=== PATIENT | female | born 1950 | race Caucasian/White ===

== ENCOUNTER 2017-07-13 13:07 | Inpatient (IN) | payer MEDICARE, OTHER ==
[~2017-07-13] VITALS: Ht 165.1 cm; Wt 79.8 kg
--- NOTE | 2017-07-13 15:04 | NUR ---
DR KAYA COLEMAN OFFICE CALLED TO REQUEST H&P AND LIST OF MEDS - AWAITING MED LIST PER FAX. PER MD OFFICE H&P IS NOT AVAILABLE YET.
[2017-07-13 15:13] LABS: BASOPHILS # (AUTO) 0.1 K/uL (0.0-8.0); BASOPHILS % (AUTO) 0.7 % (0.0-2.0); EOSINOPHILS % (AUTO) 0.1 % (0.0-7.0); LYMPHOCYTES # (AUTO) 1.3 K/uL (20.0-40.0); LYMPHOCYTES % (AUTO) 8.9 % (20.5-51.5); MEAN CORPUSCULAR HEMOGLOBIN 27.6 uug (24.7-32.8); MEAN CORPUSCULAR HGB CONC 33 g/dL (32.3-35.6); MEAN CORPUSCULAR VOLUME 82.7 fL (75.5-95.3); MONOCYTES # (AUTO) 1.7 K/uL (2.0-10.0); NEUTROPHILS # (AUTO) 11.2 K/uL (1.8-8.9); NEUTROPHILS % (AUTO) 78.3 % (38.5-71.5); PLATELET COUNT (AUTO) 473 K/uL (179-408); RED BLOOD CELL COUNT(AUTO) 4.36 MIL/uL (3.63-4.92); WHITE BLOOD COUNT (AUTO) 14.3 K/uL (3.8-11.8)
[2017-07-13 15:21] LABS: CARBON DIOXIDE 25 mmol/L (21-32); CHLORIDE 93 mmol/L (98-107); CREATININE 1.1 mg/dL (0.6-1.3); GLUCOSE 95 mg/dL (74-106); POTASSIUM 3.6 mmol/L (3.5-5.1); UREA NITROGEN, BLOOD 15 mg/dL (7-18)
[2017-07-13 15:27] LABS: ALANINE AMINOTRANSFERASE 42 U/L (14-59); ALKALINE PHOSPHATASE 159 U/L (50-136); ASPARTATE AMINOTRANSFERASE 31 U/L (15-37); BILIRUBIN,DIRECT 0.2 mg/dL (0.0-0.2); BILIRUBIN,TOTAL 0.7 mg/dL (0.2-1.0); TOTAL PROTEIN, SERUM 8.1 g/dL (6.4-8.2)
[2017-07-13 15:29] LABS: ACETAMINOPHEN < 2.0 ug/mL (10-30)
[2017-07-13 15:30] LABS: ETHANOL < 3 MG/DL (0-0)
[2017-07-13 15:34] LABS: THYROID STIMULATING HORMONE 0.381 mIU/mL (0.358-3.740)
[2017-07-13] MEDS ORDERED: AMLO10TA4 PO (15:43)
[2017-07-13] MEDS ORDERED: DONE10TA11 PO (15:43)
[2017-07-13] MEDS ORDERED: FURO-152 PO (15:44)
[2017-07-13] MEDS ORDERED: RIVA1PAT TP (15:44)
[2017-07-13] MEDS ORDERED: TEMA15CA5 PO (15:44)
[2017-07-13] MEDS ORDERED: ZIPR80CA2 PO (15:44)
[2017-07-13] MEDS ORDERED: LORA-258 PO (15:44)
[2017-07-13] MEDS ORDERED: GABA-534 PO (15:44)
[2017-07-13] MEDS ORDERED: QUET200T PO (15:44)
[2017-07-13] MEDS ORDERED: BENA40TA2 PO (15:44)
--- NOTE | 2017-07-13 16:36 | NUR ---
ANGELICA NAIR TALKING TO FRANCESCO QUICK
--- NOTE | 2017-07-13 18:40 | NUR ---
PT TRANSFERED TO MHU IN STABLE CONDITION.
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
[2017-07-13] MEDS ORDERED: MAGNESIUM HYDROXIDE 30 ML LIQUID UDC PO PRN (19:30)
[2017-07-13] MEDS ORDERED: MAG HYDROX/AL HYDROX/SIMETH 30 ML LIQUID UDC PO PRN (19:30)
[2017-07-13 19:39] VITALS: BP 148/88
[2017-07-13] MEDS: ACETAMINOPHEN 325 MG TABLET PO PRN (21:46)
[2017-07-13] MEDS: TEMAZEPAM 7.5 MG CAPSULE PO PRN (21:46)
[2017-07-13] MEDS ORDERED: Z GUARD REMEDY PASTE 57 GM TUBE TOP PRN (22:15)
--- NOTE | 2017-07-14 06:22 | NUR ---
Patient slept 8 hours. No behavioral issues noted. Cooperative. Med compliant. Vital signs stable. Bed was kept in low and locked position. Safety and comfort measures maintained t/o shift.
[2017-07-14 07:30] VITALS: BP 105/63
[2017-07-14] MEDS: Z GUARD REMEDY PASTE 57 GM TUBE TOP SCH ×2 (09:01→20:01)
[2017-07-14] MEDS: NICOTINE 21 MG/24HR PATCH TD SCH (09:01)
[2017-07-14 10:04] LABS: BASOPHILS % (AUTO) 0.5 % (0.0-2.0); EOSINOPHILS # (AUTO) 0.1 K/uL (0.0-0.7); EOSINOPHILS % (AUTO) 1.6 % (0.0-7.0); HEMATOCRIT 34.2 % (31.2-41.9); HEMOGLOBIN 11.4 g/dL (10.9-14.3); LYMPHOCYTES # (AUTO) 1.7 K/uL (20.0-40.0); LYMPHOCYTES % (AUTO) 21.1 % (20.5-51.5); MEAN CORPUSCULAR HEMOGLOBIN 27.8 uug (24.7-32.8); MEAN CORPUSCULAR HGB CONC 33 g/dL (32.3-35.6); MEAN CORPUSCULAR VOLUME 83.5 fL (75.5-95.3); MONOCYTES # (AUTO) 1.1 K/uL (2.0-10.0); NEUTROPHILS % (AUTO) 62.8 % (38.5-71.5); PLATELET COUNT (AUTO) 445 K/uL (179-408)
[2017-07-14 10:20] LABS: MAGNESIUM 1.9 mg/dL (1.8-2.4); PHOSPHOROUS 4.2 mg/dL (2.5-4.9); POTASSIUM 3.9 mmol/L (3.5-5.1)
[2017-07-14 10:37] LABS: URIC ACID 5.4 mg/dL (2.6-6.0)
[2017-07-14 11:18] LABS: *BILIRUBIN,URIN NEGATIVE (NEGATIVE); *BLOOD, URINE NEGATIVE (NEGATIVE); *CLARITY,URINE CLEAR (CLEAR); *KETONES,URINE NEGATIVE (NEGATIVE); *PROTEIN,URINE NEGATIVE (NEGATIVE); *UROBILINOGEN,URINE 0.2 E.U./dl (NORMAL); LEUKOCYTE ESTERASE ,URINE NEGATIVE (NEGATIVE); NITRITE, URINE NEGATIVE (NEGATIVE); PH,URINE 5.5 (5.0-8.0); UGLUCOSE NEGATIVE (NEGATIVE)
[2017-07-14 11:23] LABS: THYROID STIMULATING HORMONE 0.463 mIU/mL (0.358-3.740)
[2017-07-14 11:28] LABS: *COLOR,URINE LIGHT YELLOW (YELLOW); BACTERIA,URINE NONE SEEN /HPF (NONE SEEN); RBC,URINE 0-3 /HPF (0-3); SQUAMOUS EPITHELIAL CELL,UR FEW /HPF (NONE SEEN); WBC,URINE NONE SEEN /HPF (0-3)
--- NOTE | 2017-07-14 11:41 | NUR ---
Firearms Report: Escrow Officer completed and submitted [employer] Firearms Report on 07/14/17.
[2017-07-14 11:54] LABS: *AMPHETAMINE, URINE NEGATIVE (NEGATIVE); *BARBITURATE, URINE NEGATIVE (NEGATIVE); *CANNABINOID, URINE NEGATIVE (NEGATIVE); *COCCAINE, URINE NEGATIVE (NEGATIVE); *OPIATE, URINE NEGATIVE (NEGATIVE); *PHENCYCLIDINE SCREEN,URINE NEGATIVE (NEGATIVE)
[2017-07-14] MEDS: ACETAMINOPHEN 325 MG TABLET PO PRN (11:55)
[2017-07-14 14:39] VITALS: BP 157/84
--- NOTE | 2017-07-14 14:51 | NUR ---
Initial Discharge Instructions: Patient currently resides at home alone [[address] [place] [address]; [phone]]. Per pt, she would like to return there when ready. Spoke with patient's brother, Jose ([phone]) who states that the patient has a long history of falling and medication non-compliance and does not feel it is safe for the patient to return home upon discharge. MAMADOU will continue to collaborate with pt, family, and MD regarding appropriate discharge disposition. SW will form a safe and proper discharge plan.
[2017-07-14] MEDS ORDERED: BENAZEPRIL HCL 20 MG TABLET PO ONE (16:15)
[2017-07-14] MEDS ORDERED: AMLODIPINE 10 MG TABLET PO ONE (16:15)
[2017-07-14] MEDS: GABAPENTIN 300 MG CAPSULE PO SCH (16:34)
[2017-07-14] MEDS: LORAZEPAM 0.5 MG TABLET PO SCH (17:02)
[2017-07-14] MEDS: ZIPRASIDONE 80 MG CAPSULE PO SCH (20:01)
[2017-07-14 21:40] VITALS: BP 130/75
--- NOTE | 2017-07-14 22:00 | NUR ---
received to care, up in blaze chair, appearing restless, and agitated, yellin gout intermittently, difficult to redirect. compliant with medications and staff direction. was assisted to the bathroom, and was very unsteady on her feet, so she was placed back in the blaze chair, for safety. as of 2199, she remains awake, and restless. currently eating a snack. will continue to monitor closely.
[2017-07-14] MEDS: TEMAZEPAM 7.5 MG CAPSULE PO PRN (22:32)
--- NOTE | 2017-07-14 22:32 | NUR ---
remains awake, and restless, attempting to get out of bed. placed in the blaze chair, at nurses station, for safety. PRN restoril was given at this time. will continue to monitor closely.
[2017-07-15] MEDS: LORAZEPAM 0.5 MG TABLET PO PRN ×2 (00:50→14:48)
[2017-07-15] MEDS: ACETAMINOPHEN 325 MG TABLET PO PRN ×3 (00:50→22:40)
--- NOTE | 2017-07-15 00:50 | NUR ---
assisted to be at 2330. as of 49, she remains awake, sitting up in bed. PRN ativan was given, she was assisted to the bathroom, and back to bed. will continue to monitor closely.
--- NOTE | 2017-07-15 06:35 | NUR ---
slept 1.5 hours, total. remains awake, and easily agitated. refused AM lab draw. currently sitting at her bedside.
[2017-07-15 07:30] VITALS: BP 106/74
[2017-07-15 07:39] LABS: CREATININE 0.9 mg/dL (0.6-1.3); POTASSIUM 4.2 mmol/L (3.5-5.1)
[2017-07-15] MEDS: BENAZEPRIL HCL 20 MG TABLET PO SCH (08:42)
[2017-07-15] MEDS: NICOTINE 21 MG/24HR PATCH TD SCH (08:43)
[2017-07-15] MEDS: AMLODIPINE 10 MG TABLET PO SCH (08:44)
[2017-07-15] MEDS: LORAZEPAM 0.5 MG TABLET PO SCH ×2 (08:44→18:54)
[2017-07-15] MEDS: GABAPENTIN 300 MG CAPSULE PO SCH ×3 (08:44→17:14)
[2017-07-15] MEDS: ZIPRASIDONE 80 MG CAPSULE PO SCH ×3 (08:45→22:40)
[2017-07-15] MEDS: Z GUARD REMEDY PASTE 57 GM TUBE TOP SCH ×2 (08:54→20:41)
[2017-07-15 17:05] VITALS: BP 124/62
[2017-07-15 20:08] VITALS: BP 103/79
--- NOTE | 2017-07-15 22:00 | NUR ---
received to care, up in blaze chair, calm, pleasant upon approach. assited to bed, after being assited with a shower. b/p was initially 103/79, so her geodon was held. as of 2199, she remains awake. remains calm. assityed to the bathroom several times since going top bed. gait remains unsteady. no distress noted. will continue to moniot rclosely.
[2017-07-15 22:40] VITALS: BP 132/78
[2017-07-16] MEDS: TEMAZEPAM 7.5 MG CAPSULE PO PRN ×2 (00:14→22:34)
--- NOTE | 2017-07-16 00:14 | NUR ---
remains awake, and restless. PRN restoril was given at this time.
--- NOTE | 2017-07-16 01:00 | NUR ---
appears to be asleep. no distress noted.
--- NOTE | 2017-07-16 06:00 | NUR ---
slept 5.0 hours, total. assisted up in blaze chair, after she tried to climb out of bed. currently at nurses station. no distress noted. will continue to monitor closely.
--- NOTE | 2017-07-16 07:00 | NUR ---
RECEIVED REPORT FROM FRAME NAILER, PATIENT UP IN GERICHAIR, CONTINENT AND AMBULATORY BUT WITH SHUFFLING GAIT, FALL RISK, NEEDS 1 PERSON ASSIST. NO ACUTE DISTRESS AT THIS TIME. ABLE TO VERBALIZE NEEDS. PER FRAME NAILER PATIENT WAS DIFFICULT TO REDIRECT LAST NIGHT. COMFORT MEASURES PROVIDED, WILL CONTINUE TO MONITOR CLOSELY.
[2017-07-16 07:30] VITALS: BP 166/91
[2017-07-16] MEDS: BENAZEPRIL HCL 20 MG TABLET PO SCH (08:07)
[2017-07-16] MEDS: NICOTINE 21 MG/24HR PATCH TD SCH (08:07)
[2017-07-16] MEDS: AMLODIPINE 10 MG TABLET PO SCH (08:08)
[2017-07-16] MEDS: LORAZEPAM 0.5 MG TABLET PO SCH ×2 (08:08→18:02)
[2017-07-16] MEDS: GABAPENTIN 300 MG CAPSULE PO SCH ×3 (08:08→16:04)
[2017-07-16] MEDS: ZIPRASIDONE 80 MG CAPSULE PO SCH ×2 (08:08→21:32)
[2017-07-16] MEDS: Z GUARD REMEDY PASTE 57 GM TUBE TOP SCH ×2 (08:09→20:19)
[2017-07-16] MEDS: LORAZEPAM 0.5 MG TABLET PO PRN (15:21)
[2017-07-16] MEDS: ACETAMINOPHEN 325 MG TABLET PO PRN ×2 (16:03→22:33)
[2017-07-16 16:22] VITALS: BP 110/68
--- NOTE | 2017-07-16 16:48 | NUR ---
Gps/Youth Coordinator- Frequentcy in urinations noted, bladder incontinence, good juan manuel-care encouraged, rendered, redness to coccygeal area, z-guard applied. Unsteady gait, shuffles when ambulating, potential for fall, safety reviewed and emphasized. Ambulated with front wheel walker, 2 staff assisting verbal cueing given , difficulty sequencing her tasks, wanting to sit down during ambulation.Gets needy, demanding behavior.
[2017-07-16 20:00] VITALS: BP 99/62
[2017-07-16 21:30] VITALS: BP 123/77
--- NOTE | 2017-07-16 22:00 | NUR ---
received to care, up in blaze chair, watching tv, with peers. pleasant, but slightly anxious, upon approach. compliant with medications, and staff direction. as of 2199, she remains awake, watching tv. currently eating a snack. no distress noted, will continue to monitor closely.
--- NOTE | 2017-07-16 22:34 | NUR ---
remains awake, and restless. yelling out intermittently, even though all her needs were met. PRN restoril was given at this time. continues to watch tv. will continue to monitor closely.
[2017-07-17] MEDS: LORAZEPAM 0.5 MG TABLET PO PRN ×2 (00:05→20:30)
--- NOTE | 2017-07-17 00:05 | NUR ---
remains awake, and restless. attempting to climb out of bed, for no reason. PRN ativan was given. will continue to monitor closely.
--- NOTE | 2017-07-17 06:19 | NUR ---
PT DID NOT SLEEP DURING THE NIGHT, FELL ASLEEP IN THE MORNING. MOST OF THE NIGHT PT WAS RESTLESS AND TRYING TO GET OUT OF BED, YELLING AND ATTENTION SEEKING, PT DID RELAX FOR A SHORT TIME IN THE UTILITY WORKER FORGE. ALL NEEDS MET, SAFETY MEASURES ARE IN PLACE, BED ALARM IS ON.
[2017-07-17 07:30] VITALS: BP 167/87
[2017-07-17] MEDS: GABAPENTIN 300 MG CAPSULE PO SCH ×3 (08:38→16:28)
[2017-07-17] MEDS: AMLODIPINE 10 MG TABLET PO SCH (08:39)
[2017-07-17] MEDS: NICOTINE 21 MG/24HR PATCH TD SCH ×2 (08:39→08:53)
[2017-07-17] MEDS: BENAZEPRIL HCL 20 MG TABLET PO SCH (08:39)
[2017-07-17] MEDS: Z GUARD REMEDY PASTE 57 GM TUBE TOP SCH ×2 (08:40→20:19)
[2017-07-17] MEDS: LORAZEPAM 0.5 MG TABLET PO SCH ×2 (08:41→16:28)
[2017-07-17] MEDS: ZIPRASIDONE 80 MG CAPSULE PO SCH ×2 (08:47→20:16)
--- NOTE | 2017-07-17 12:52 | NUR ---
Gps/Director Peoplesoft- remains in bed most of the morning ,asleep bed alarm on. Safety reviewed,emphasized. Decreased voiding frequency.
--- NOTE | 2017-07-17 14:00 | NUR ---
Gps/Chemical Equipment Repairer-Bladder incontienence noted, good juan manuel-care encouraged and rendered, z-guard applied to her buttocks area,diapered. OOB to her chair, attending her group therapy.Was toileted after her meals.
[2017-07-17 15:50] VITALS: BP 114/63
--- NOTE | 2017-07-17 17:49 | NUR ---
Gps/Sausage Smoker- Stayed up on her blaze-chair during her dinner, fed self ind. after set up, toileted at a reg.intervals, Fluids limited, r/t pt. frequency in urinations .
--- NOTE | 2017-07-17 20:00 | NUR ---
PT IN ROOM LYING IN BED IN NO ACUTE DISTRESS. PERIODS OF ANXIETY NOTED AND REMOVING DIAPER. NEEDS REMINDERS REGARDING SAFETY AND TO REQUEST FOR ASSISTANCE WHEN NEEDED. PT MADE AWARE OF PLAN OF CARE REGARDING ROUTINE HS MEDICATION REGIMEN. BED ALARM AND AND WILL CONTINUE TO MONITOR. DENIES ANY PAIN OR DISCOMFORT AT THIS TIME.
[2017-07-17 20:26] VITALS: BP 122/78
[2017-07-17] MEDS: TEMAZEPAM 7.5 MG CAPSULE PO PRN (21:59)
[2017-07-17] MEDS: ACETAMINOPHEN 325 MG TABLET PO PRN (21:59)
--- NOTE | 2017-07-18 05:59 | NUR ---
PT ABLE TO SLEEP UP TO 4 HRS IN ROOM. PT HAD PERIODS OF ATTENTION SEEKING LAST NIGHT AND WAS GIVEN ATIVAN WITH LITTLE TO NO EFFECT. RESTORIL MEDICATION OFFERED AND WAS EFFECTIVE. PT NEEDS CONTINUOUS OBSERVATION FOR SAFETY AND REDIRECTION. WILL CONTINUE TO MONITOR.
[2017-07-18 07:30] VITALS: BP 140/98
[2017-07-18] MEDS: ZIPRASIDONE 80 MG CAPSULE PO SCH ×2 (08:36→20:58)
[2017-07-18] MEDS: AMLODIPINE 10 MG TABLET PO SCH (08:37)
[2017-07-18] MEDS: LORAZEPAM 0.5 MG TABLET PO SCH ×2 (08:37→16:26)
[2017-07-18] MEDS: BENAZEPRIL HCL 20 MG TABLET PO SCH (08:37)
[2017-07-18] MEDS: GABAPENTIN 300 MG CAPSULE PO SCH ×3 (08:37→16:26)
[2017-07-18] MEDS: NICOTINE 21 MG/24HR PATCH TD SCH (08:38)
[2017-07-18] MEDS: Z GUARD REMEDY PASTE 57 GM TUBE TOP SCH ×2 (08:38→20:58)
--- NOTE | 2017-07-18 08:58 | NUR ---
Gps/Director Instrumentation-Manipuilative, needy ,demanding behavior, distructive to the group pt. kept picking on her diaper , taken out of the the group. Patient banging table , wants to get out of blaez-chair and walk around per pt. Tried to ambulate patient with 2 staff assisting , unsafe unsteady gait, shuffles, potential for fall. Patient difficulty following directions . Hesitant to take he routine am meds.this am. ,needed prompting.
[2017-07-18] MEDS: LORAZEPAM 0.5 MG TABLET PO PRN ×2 (10:59→19:46)
--- NOTE | 2017-07-18 15:00 | NUR ---
Gps/Dialysis Nurse- Taken to the bathroom in her room , bladder incontinence noted, diapered when assisted back to her bed to rest, bed alarm on, safety continue to review and emphasized.
[2017-07-18 15:50] VITALS: BP 136/76
--- NOTE | 2017-07-18 16:51 | NUR ---
Gps/Director Of Strategic Initiatives- Stayed up on her blaze-chair during her breakfast and lunch, was assisted back to bed this pm. to rest, complaining of her coccygeal soreness, slightly reddened, z-guard applied.Had bladder incontinence. Safety reviewed continue to emphasized. Gets demanding and needy ,constantly asking for something, setting limits emphasized.
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
[2017-07-18 20:00] VITALS: BP 114/66
--- NOTE | 2017-07-18 21:00 | NUR ---
DUE TIME FOR JENNY RENE;EDUCATED TO PT;PT TOLERATED WELL BUT KEPT ASKING FOR SLEEPING PILL;EDUCATED TO PT THAT WILL GIVE IT LATER;PT'S CALM ON/OFF;STILL YELLING TO GET MORE ICE CHIPS AND SOME PUDDING;THE NEED'S MET.BED ALARM'S ON.SAFETY REINFORCED.CLOSELY MONITORING TO PT.
[2017-07-19] MEDS: TEMAZEPAM 7.5 MG CAPSULE PO PRN ×2 (02:01→20:01)
[2017-07-19] MEDS: LORAZEPAM 0.5 MG TABLET PO PRN ×2 (04:02→13:00)
--- NOTE | 2017-07-19 06:30 | NUR ---
PT SLEPT FOR 4 HOURS AT NIGHT,SLEPT ON/OFF DURING OF THE NIGHT.PT'S YELLING ON/OFF THE MOST FOR ICE CHIPS.NO DISTRESS NOTED IN THE SHIFT,PT REMAINED FREE FROM INJURY.BED ALARM'S ON FOR SAFETY.
[2017-07-19 07:30] VITALS: BP 136/94
[2017-07-19] MEDS: LORAZEPAM 0.5 MG TABLET PO SCH ×2 (08:01→16:09)
[2017-07-19] MEDS: NICOTINE 21 MG/24HR PATCH TD SCH (08:01)
[2017-07-19] MEDS: LIDOCAINE 5% PATCH TD SCH (08:01)
[2017-07-19] MEDS: GABAPENTIN 300 MG CAPSULE PO SCH ×4 (08:02→19:58)
[2017-07-19] MEDS: BENAZEPRIL HCL 20 MG TABLET PO SCH (08:02)
[2017-07-19] MEDS: AMLODIPINE 10 MG TABLET PO SCH (08:02)
[2017-07-19] MEDS: ZIPRASIDONE 80 MG CAPSULE PO SCH ×2 (08:02→20:00)
[2017-07-19] MEDS: Z GUARD REMEDY PASTE 57 GM TUBE TOP SCH ×2 (08:25→20:34)
[2017-07-19] MEDS: ACETAMINOPHEN 325 MG TABLET PO PRN ×3 (10:27→20:01)
--- NOTE | 2017-07-19 10:31 | NUR ---
Manipuilative, needy ,demanding behavior, distructive to the group pt. , Patient banging table , wants to get out of blaze-chair and walk around per pt. Tried to ambulate patient with 2 staff assisting , unsafe unsteady gait, shuffles, potential for fall. Patient difficulty following directions .
[2017-07-19 15:29] VITALS: BP 112/71
--- NOTE | 2017-07-19 17:37 | NUR ---
PT IS COMBATIVE USING BAD WORDS .CALLING THE STAFF WITH THE NAMES ENRIKE YOU ,YOU MD SANTIAGO AND CHARGE NURSE MADE AWARE
[2017-07-19 20:00] VITALS: BP 105/56
--- NOTE | 2017-07-19 22:11 | NUR ---
Lying in bed mood agitated affect flat Demanding ice h20 Denies A/H V/H Si or Hi. Given H20 and encourage to verbalize her feelings q 30 min checks for safety and fall precations bed alarm on. Med compliant with 2100 meds, cooperative with staff.
[2017-07-20] MEDS: LORAZEPAM 0.5 MG TABLET PO PRN ×2 (04:10→14:09)
--- NOTE | 2017-07-20 06:30 | NUR ---
PT SLEPT FOR 7.0 AT POST CLOSING SPECIALIST,DENIED OF PAIN OR ANY DISCOMFORT THIS MORNING. C/o anxiety at 3am given ativan 0.5 mg po. effective IN THE SHIFT.PT REMAINED FREE FROM INJURY AND COMPLAINT WITH MEDICATION AND ASSISTANCE NOTED.
[2017-07-20 07:30] VITALS: BP 111/69
[2017-07-20] MEDS: ZIPRASIDONE 80 MG CAPSULE PO SCH ×2 (08:05→20:23)
[2017-07-20] MEDS: LORAZEPAM 0.5 MG TABLET PO SCH ×2 (08:05→16:13)
[2017-07-20] MEDS: AMLODIPINE 10 MG TABLET PO SCH (08:06)
[2017-07-20] MEDS: BENAZEPRIL HCL 20 MG TABLET PO SCH (08:06)
[2017-07-20] MEDS: Z GUARD REMEDY PASTE 57 GM TUBE TOP SCH ×2 (08:07→20:29)
[2017-07-20] MEDS: GABAPENTIN 300 MG CAPSULE PO SCH ×3 (08:07→20:24)
[2017-07-20] MEDS: NICOTINE 21 MG/24HR PATCH TD SCH (08:07)
[2017-07-20] MEDS: LIDOCAINE 5% PATCH TD SCH (08:07)
[2017-07-20] MEDS ORDERED: LORAZEPAM 2 MG/1 ML VIAL IM ONE (08:45)
[2017-07-20] MEDS ORDERED: OLANZAPINE 10 MG VIAL IM ONE (08:45)
[2017-07-20] MEDS ORDERED: GABAPENTIN 300 MG CAPSULE PO SCH (13:00)
[2017-07-20 15:59] VITALS: BP 99/62
--- NOTE | 2017-07-20 19:45 | NUR ---
RECEIVED PATIENT IN BED, AWAKE VERBALLY RESPONSIVE, NO COMPLAIN OF PAIN AT THIS TIME, CONT ON 1;1 FOR SAFETY, KEPT CLEAN AND DRY. CONT TO MONITOR.
[2017-07-20 20:12] VITALS: BP 122/64
[2017-07-21] MEDS: ACETAMINOPHEN 325 MG TABLET PO PRN ×2 (00:27→16:08)
[2017-07-21] MEDS: LORAZEPAM 0.5 MG TABLET PO PRN ×2 (00:50→11:58)
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
[2017-07-21 07:30] VITALS: BP 138/84
[2017-07-21] MEDS: GABAPENTIN 300 MG CAPSULE PO SCH ×4 (09:14→20:39)
[2017-07-21] MEDS: AMLODIPINE 10 MG TABLET PO SCH (09:14)
[2017-07-21] MEDS: ZIPRASIDONE 80 MG CAPSULE PO SCH ×2 (09:14→20:39)
[2017-07-21] MEDS: LIDOCAINE 5% PATCH TD SCH (09:14)
[2017-07-21] MEDS: BENAZEPRIL HCL 20 MG TABLET PO SCH (09:14)
[2017-07-21] MEDS: LORAZEPAM 0.5 MG TABLET PO SCH ×2 (09:14→16:08)
[2017-07-21] MEDS: Z GUARD REMEDY PASTE 57 GM TUBE TOP SCH ×2 (09:17→20:40)
[2017-07-21] MEDS: NICOTINE 21 MG/24HR PATCH TD SCH (10:06)
[2017-07-21] MEDS ORDERED: HYDROCORTISONE 0.5% TOP PRN (15:00)
[2017-07-21 15:25] VITALS: BP 128/75
--- NOTE | 2017-07-21 19:23 | NUR ---
no changes noted. all safety needs are met.
[2017-07-21 20:19] VITALS: BP 115/61
--- NOTE | 2017-07-21 22:00 | NUR ---
received to care, lying in bed, pleasant, but needy and attention seeking upon approach. 1;1 sitter remains at side, for safety. compliant with medications and staff direction. a sof 230, she appears to be asleep. no distress noted. will continue to monitor closely.
--- NOTE | 2017-07-21 22:30 | NUR ---
receive dto care, lying in bed, pleasant, but needy and attention seeking upon approach. 1;1 sitter remains at side, for safety. complian terrell martinez
[2017-07-22] MEDS: ACETAMINOPHEN 325 MG TABLET PO PRN ×3 (05:30→18:42)
[2017-07-22] MEDS: LORAZEPAM 0.5 MG TABLET PO PRN ×2 (05:30→13:20)
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
--- NOTE | 2017-07-22 05:50 | NUR ---
PT REFUSED TO STAY IN THE TUCKER CHAIR. STATES SHE IS ANGRY BECAUSE SHE WANTS TO GO HOME. CURRENTLY SITTING IN A HIGH BACK CHAIR, WITH SITTER AT SIDE. WILL CONTINUE TO MONITOR CLOSELY.
--- NOTE | 2017-07-22 06:42 | NUR ---
appears calmer, now. remains in activity room. no distress noted. slept 6 hours last night.
[2017-07-22 08:00] VITALS: BP 119/71
[2017-07-22] MEDS: GABAPENTIN 300 MG CAPSULE PO SCH ×4 (08:49→20:38)
[2017-07-22] MEDS: AMLODIPINE 10 MG TABLET PO SCH (08:50)
[2017-07-22] MEDS: LORAZEPAM 0.5 MG TABLET PO SCH ×2 (08:50→16:25)
[2017-07-22] MEDS: ZIPRASIDONE 80 MG CAPSULE PO SCH ×2 (08:50→20:38)
[2017-07-22] MEDS: BENAZEPRIL HCL 20 MG TABLET PO SCH (08:50)
[2017-07-22] MEDS: LIDOCAINE 5% PATCH TD SCH (08:51)
[2017-07-22] MEDS: Z GUARD REMEDY PASTE 57 GM TUBE TOP SCH ×2 (08:56→20:39)
[2017-07-22] MEDS: NICOTINE 21 MG/24HR PATCH TD SCH (08:56)
--- NOTE | 2017-07-22 15:25 | NUR ---
Gps/Level Glass Forming Machine Operator- Remains with 1:1 Nursing supervision for safety. Ambulated with P.T. using FWW., needed verbal cueing in taking a big steps , shuffles at times. Discharge planning for tomorrow pt. was well informed.
[2017-07-22 16:00] VITALS: BP 126/68
--- NOTE | 2017-07-22 16:15 | NUR ---
Gps/Manager Technical- Patches of red bumps rashes to her bilateral forearm, and lower ext. shins, hydrocortisone cream applied as ordered, pt. verbalized relief from itching.
[2017-07-22] MEDS: HYDROCORTISONE 1% OINT 28.35 GM TUBE TOP PRN (16:28)
[2017-07-22 20:00] VITALS: BP 139/72
[2017-07-22] MEDS: TEMAZEPAM 7.5 MG CAPSULE PO PRN (21:52)
--- NOTE | 2017-07-22 22:30 | NUR ---
received to care, lying in bed, pleasant, but needy and attention seeking. 1;1 sitter remains at side, for safety; all needs attended to. compliant with medications and staff direction. PRN restoril was given at 2151, for insomnia. as of 2229, she appears to be asleep. no distress noted. will continue to monitor closely.
[2017-07-23] MEDS: LORAZEPAM 0.5 MG TABLET PO PRN ×2 (03:51→10:52)
[2017-07-23] MEDS: ACETAMINOPHEN 325 MG TABLET PO PRN (03:52)
--- NOTE | 2017-07-23 03:52 | NUR ---
is awake, and restless. PRN ativan given for anxiety.
[2017-07-23 07:30] VITALS: BP 132/76
--- NOTE | 2017-07-23 08:17 | NUR ---
DC Note: Patient will be discharged to [facility] [[address] [place] [address]; [phone]] via ambulance. Spoke with Shakeel at the facility who states they are ready to accept the patient today. Spoke with patient's brother, Jose ([phone]) and [id number], Nathanael ([phone]) who are both aware and agreeable with discharge plans. Patient is aware and agreeable with discharge plan. Patient will follow-up at the facility with Dr. Schulte (Field Administrator) and Dr. Mcmullen (Psychiatrist).
[2017-07-23] MEDS: BENAZEPRIL HCL 20 MG TABLET PO SCH (08:31)
[2017-07-23] MEDS: AMLODIPINE 10 MG TABLET PO SCH (08:31)
[2017-07-23] MEDS: ZIPRASIDONE 80 MG CAPSULE PO SCH (08:31)
[2017-07-23] MEDS: NICOTINE 21 MG/24HR PATCH TD SCH (08:32)
[2017-07-23] MEDS: GABAPENTIN 300 MG CAPSULE PO SCH ×2 (08:32→12:31)
[2017-07-23] MEDS: LORAZEPAM 0.5 MG TABLET PO SCH (08:32)
[2017-07-23] MEDS: Z GUARD REMEDY PASTE 57 GM TUBE TOP SCH (08:33)
[2017-07-23] MEDS: LIDOCAINE 5% PATCH TD SCH (08:56)
--- NOTE | 2017-07-23 09:13 | NUR ---
Gps/Geology Teacher- Discharge planning in progress to [facility], patient was well informed.
[2017-07-23] MEDS: HYDROCORTISONE 1% OINT 28.35 GM TUBE TOP PRN (09:18)
--- NOTE | 2017-07-23 14:00 | NUR ---
Gps/Log Check Scaler- Called [facility], spoke to Tonie Herring ,report was given. All belongings given back to patient , anxious about dc. plan ,but looking forward to it per patient. Denies pain appeared to be in good spirit, no complaints noted.
[2017-07-23 14:31] VITALS: BP 121/74
--- NOTE | 2017-07-23 15:35 | NUR ---
Gps/Afterschool Babysitter- Patient's shoes and black purse , clothes apparently picked up by mistake by ambulance for patient that want discharged to [facility], facility was called and will be bringing patient's belongings to [facility].
== END 2017-07-23 15:55 | DRG 885 ==
LOC: ER 13:07 → GPS 18:28
PROVIDERS: ADMIT Psychiatry & Neurology Psychiatry; ATTEND Nurse Practitioner Acute Care
DX: F25.0 Schizoaffective disorder, bipolar type (principal); G93.40 Encephalopathy, unspecified; E87.1 Hypo-osmolality and hyponatremia; Z79.899 Other long term (current) drug therapy; M47.812 Spondylosis without myelopathy or radiculopathy, cervical region; E04.2 Nontoxic multinodular goiter; Z91.89 Other specified personal risk factors, not elsewhere classified; G89.29 Other chronic pain; M54.5 Low back pain; I67.2 Cerebral atherosclerosis; D72.829 Elevated white blood cell count, unspecified; D47.3 Essential (hemorrhagic) thrombocythemia; I10 Essential (primary) hypertension; M77.9 Enthesopathy, unspecified
CPT/HCPCS: 36415; 70030-TC; 70450; 71045; 72125; 80307; 82533; 83605; 83735; 84100; 84300; 84443; 84550; 85025; 85730; 86592; 87040; 87086; 93005; 97110; 97116; 97530; A4663; G0480; G0480-TC; J2060; J2358; J7060

== ENCOUNTER 2017-08-05 21:38 | Inpatient (IN) | payer MEDICARE, OTHER ==
[~2017-08-05] VITALS: Ht 157.5 cm; Wt 80.7 kg
[~2017-08-05 21:38] MED LIST: AMLO10TA4 PO; BENA40TA2 PO; FURO-152 PO; GABA-534 PO
--- NOTE | 2017-08-05 21:42 | NUR ---
All information obtained from records sent from [facility]
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
[2017-08-05] MEDS ORDERED: TEMA7.5C PO (22:04)
[2017-08-05] MEDS ORDERED: ZIPR80CA2 PO (22:04)
[2017-08-05] MEDS ORDERED: NA P133E RC (22:04)
[2017-08-05] MEDS ORDERED: GABA600T PO (22:04)
[2017-08-05] MEDS ORDERED: ACET325T53 PO (22:04)
[2017-08-05] MEDS ORDERED: LIDO30AD10 TD (22:04)
[2017-08-05] MEDS ORDERED: MAG355OR18 PO (22:04)
[2017-08-05] MEDS ORDERED: LORA0.5T PO (22:04)
[2017-08-05] MEDS ORDERED: LORA0.5T48 PO (22:04)
[2017-08-05] MEDS ORDERED: AMLO10TA4 PO (22:04)
[2017-08-05] MEDS ORDERED: BENA40TA67 PO (22:04)
[2017-08-05] MEDS ORDERED: MAGN400O6 PO (22:04)
[2017-08-05 22:12] LABS: *BILIRUBIN,URIN NEGATIVE (NEGATIVE); *BLOOD, URINE NEGATIVE (NEGATIVE); *CLARITY,URINE CLEAR (CLEAR); *COLOR,URINE LIGHT YELLOW (YELLOW); *KETONES,URINE NEGATIVE (NEGATIVE); *PROTEIN,URINE NEGATIVE (NEGATIVE); *UROBILINOGEN,URINE 0.2 E.U./dl (NORMAL); LEUKOCYTE ESTERASE ,URINE NEGATIVE (NEGATIVE); NITRITE, URINE NEGATIVE (NEGATIVE); PH,URINE 6.5 (5.0-8.0); UGLUCOSE NEGATIVE (NEGATIVE)
[2017-08-05 22:13] LABS: BASOPHILS # (AUTO) 0.1 K/uL (0.0-8.0); BASOPHILS % (AUTO) 0.6 % (0.0-2.0); EOSINOPHILS # (AUTO) 0.1 K/uL (0.0-0.7); EOSINOPHILS % (AUTO) 1.8 % (0.0-7.0); HEMATOCRIT 31.1 % (31.2-41.9); HEMOGLOBIN 10.6 g/dL (10.9-14.3); LYMPHOCYTES # (AUTO) 2.3 K/uL (20.0-40.0); LYMPHOCYTES % (AUTO) 27.7 % (20.5-51.5); MEAN CORPUSCULAR HEMOGLOBIN 27.9 uug (24.7-32.8); MEAN CORPUSCULAR HGB CONC 34 g/dL (32.3-35.6); MEAN CORPUSCULAR VOLUME 82.3 fL (75.5-95.3); MONOCYTES % (AUTO) 12.2 % (0.0-11.0); NEUTROPHILS # (AUTO) 4.7 K/uL (1.8-8.9); NEUTROPHILS % (AUTO) 57.7 % (38.5-71.5); PLATELET COUNT (AUTO) 413 K/uL (179-408); RED BLOOD CELL COUNT(AUTO) 3.78 MIL/uL (3.63-4.92); WHITE BLOOD COUNT (AUTO) 8.1 K/uL (3.8-11.8)
[2017-08-05 22:18] LABS: CARBON DIOXIDE 26 mmol/L (21-32); CHLORIDE 99 mmol/L (98-107); GLUCOSE 98 mg/dL (74-106); POTASSIUM 3.7 mmol/L (3.5-5.1); UREA NITROGEN, BLOOD 14 mg/dL (7-18)
[2017-08-05 22:20] LABS: SQUAMOUS EPITHELIAL CELL,UR FEW /HPF (NONE SEEN); WBC,URINE NONE SEEN /HPF (0-3)
[2017-08-05 22:24] LABS: ACETAMINOPHEN < 2.0 ug/mL (10-30); ALANINE AMINOTRANSFERASE 26 U/L (14-59); ALKALINE PHOSPHATASE 122 U/L (50-136); ASPARTATE AMINOTRANSFERASE 16 U/L (15-37); BILIRUBIN,DIRECT 0.1 mg/dL (0.0-0.2); BILIRUBIN,TOTAL 0.3 mg/dL (0.2-1.0)
[2017-08-05 22:26] LABS: ETHANOL < 3 MG/DL (0-0)
[2017-08-05 22:27] LABS: *AMPHETAMINE, URINE NEGATIVE (NEGATIVE); *BARBITURATE, URINE NEGATIVE (NEGATIVE); *CANNABINOID, URINE NEGATIVE (NEGATIVE); *COCCAINE, URINE NEGATIVE (NEGATIVE); *OPIATE, URINE NEGATIVE (NEGATIVE); *PHENCYCLIDINE SCREEN,URINE NEGATIVE (NEGATIVE)
--- NOTE | 2017-08-05 22:35 | NUR ---
Pt. admitted to GPS, under care of Dr. Mcmullen Belongs List completed
--- NOTE | 2017-08-05 22:50 | NUR ---
Admitting 67 y/o F to GPS. Arrived to unit via wheelchair accompanied by OPTOMETRIC TECH. Noted to be anxious. Verbally responsive and able to make needs known. AAO x 2, oriented to self and place. No acute distress noted. Compliant and non-compliant with medical interventions despite explanation of importance. Agreed to body check if done by female staff, but then refused body check when brought into bedroom. Refusing pictures and refusing to sign some admission documents despite explanation of importance. Denies SI/AH/VH. MD made aware of patient arrival. Orders verified. Denies pain or discomfort at this time. All safety measures and fall precautions maintained. Bed locked and in lowest position with side rails up x 2. Oriented to unit, pt verbalize understanding. Will continue to monitor.
[2017-08-05] MEDS ORDERED: MAG HYDROX/AL HYDROX/SIMETH 30 ML LIQUID UDC PO PRN (23:15)
[2017-08-05] MEDS ORDERED: MAGNESIUM HYDROXIDE 30 ML LIQUID UDC PO PRN (23:15)
[2017-08-05 23:36] VITALS: BP 127/75
--- NOTE | 2017-08-06 07:20 | NUR ---
Shift report given by nightshift RN. Pt new admission during noc shift. Rec'd pt up in w/c, awake, near nurse's station. No s/s of acute distress noted. On RA, no SOB noted. Denies pain. Denies chest pain. Unable to tell why she is here in the unit. Pt verbalizing she wants to go home. Reoriented and redirected as needed. All needs met at this time. Will continue to monitor for change.
[2017-08-06 07:30] VITALS: BP 153/88
[2017-08-06] MEDS ORDERED: ACETAMINOPHEN 325 MG TABLET PO PRN (09:00)
[2017-08-06] MEDS ORDERED: FLEET ENEMA 133 ML BOTTLE RC PRN (09:00)
[2017-08-06] MEDS ORDERED: MAG HYDROX/AL HYDROX/SIMETH 30 ML LIQUID UDC PO PRN (09:00)
[2017-08-06] MEDS: LIDOCAINE 5% PATCH TD SCH ×2 (09:00→09:49)
[2017-08-06] MEDS ORDERED: MAGNESIUM HYDROXIDE 30 ML LIQUID UDC PO PRN (09:00)
[2017-08-06] MEDS: GABAPENTIN 300 MG CAPSULE PO SCH ×3 (09:48→17:49)
[2017-08-06] MEDS: FUROSEMIDE 20 MG TABLET PO SCH (09:48)
[2017-08-06] MEDS: AMLODIPINE 10 MG TABLET PO SCH (09:49)
[2017-08-06] MEDS: NICOTINE 21 MG/24HR PATCH TD SCH (09:49)
[2017-08-06] MEDS: BENAZEPRIL HCL 20 MG TABLET PO SCH (09:49)
[2017-08-06] MEDS: LORAZEPAM 0.5 MG TABLET PO PRN (09:55)
[2017-08-06] MEDS: ACETAMINOPHEN 325 MG TABLET PO PRN ×2 (09:55→13:16)
--- NOTE | 2017-08-06 10:25 | NUR ---
Social Service Assessment: I have reviewed this patient's psychosocial dated 07/14/17 and I can attest to the accuracy of the information therein. There have been no changes since her last assessment, except that patient now resides at [facility] [[address] [place] [address]; [phone]]. Patient is alert and oriented x2. Patient is irritable with a flat affect. Pt appears confused and states "I want to go home." Pt denies having current suicidal/homicidal ideations. Pt denies auditory and visual hallucinations. Pt's insight and judgment are impaired.
[2017-08-06 15:00] VITALS: BP 144/83
[2017-08-06] MEDS: LORAZEPAM 0.5 MG TABLET PO SCH (17:49)
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
[2017-08-06] MEDS: DIVALPROEX 250 MG TABLET.DR PO SCH (20:09)
[2017-08-06] MEDS ORDERED: QUETIAPINE FUMARATE 100 MG TABLET PO SCH (21:00)
[2017-08-07 07:30] VITALS: BP 155/82
--- NOTE | 2017-08-07 08:00 | NUR ---
RESTORED Pt RIGHTS TO USE TELEPHONE THIS MORNING. WILL HAVE Pt USE HALLWAY TELEPHONE IF REQUESTED.
[2017-08-07] MEDS: NICOTINE 21 MG/24HR PATCH TD SCH (08:40)
[2017-08-07] MEDS: LIDOCAINE 5% PATCH TD SCH (08:40)
[2017-08-07] MEDS: GABAPENTIN 300 MG CAPSULE PO SCH ×3 (08:41→18:29)
[2017-08-07] MEDS: DIVALPROEX 250 MG TABLET.DR PO SCH ×3 (08:41→20:24)
[2017-08-07] MEDS: FUROSEMIDE 20 MG TABLET PO SCH (08:41)
[2017-08-07] MEDS: QUETIAPINE FUMARATE 100 MG TABLET PO SCH ×2 (08:41→18:30)
[2017-08-07] MEDS: LORAZEPAM 0.5 MG TABLET PO SCH ×3 (08:41→18:30)
[2017-08-07] MEDS: BENAZEPRIL HCL 20 MG TABLET PO SCH (08:42)
[2017-08-07] MEDS: AMLODIPINE 10 MG TABLET PO SCH (08:42)
--- NOTE | 2017-08-07 15:00 | NUR ---
GPS: Nursing Notes: GPS Overflow Transfer: Patient is awake and responding to her name, A/Ox3, poor impulse control, needs prompting with ADL's, compliant with her medications, gets easily irritable when redirected, transfer to room # 223 due to contact isolation, MRSA-Nares, picked up by Anny meehan CNA to take patient to room # 223, report given to Mercedes MACHADO to continue with care and treatment plan.
[2017-08-07 16:00] VITALS: BP 109/54
--- NOTE | 2017-08-07 16:30 | NUR ---
RECIEVED PT IN RM 223 VIA W/C MHU OVERFLOW BECAUSE OF MRSA ISOLATION. 14DAY HOLD WITH 1:1 SITTER AT THE BEDSIDE. PT IS AWAKE, ALERT AND ORIENTEDX3. VERY PLEASANT AND COOPERATIVE. NO APPARENT DISTRESS NOTED.
[2017-08-07] MEDS: ACETAMINOPHEN 325 MG TABLET PO PRN (18:30)
--- NOTE | 2017-08-07 18:30 | NUR ---
MEDICATED PT WITH TYLENOL 650MG ORALLY FOR C/O MADDEN. PT ATE GOOD DINNER AND ABLE TO AMBULATE TO THE BATHROOM AND VOID WELL.
--- NOTE | 2017-08-07 19:00 | NUR ---
RECEIVED PATIENT IN BED, AWAKE VERBALLY RESPONSIVE, NO SOB NO CHEST PAIN, CONT ON PAIN MANAGEMENT DUE TO BACK AND LEG PAIN. PATIENT ON 1;1 SITTER FOR SAFETY. PATIENT WITH EPISODES OF AGITATION, UNCOOPERATIVE WITH CARE, HYPERVERBAL, AND VERBALLY ABUSIVE TO STAFF. REDIRECT PATIENT, ASSIST WITH TOILETING, AND ATTENDS ALL NEEDS.
[2017-08-07 19:30] VITALS: BP 114/70
[2017-08-07] MEDS: QUETIAPINE FUMARATE 200 MG TABLET PO SCH (20:24)
[2017-08-07] MEDS: MUPIROCIN 2% OINT 22 GM TUBE NS SCH (20:30)
[2017-08-07] MEDS ORDERED: QUETIAPINE FUMARATE 100 MG TABLET PO SCH (21:00)
[2017-08-07] MEDS: TEMAZEPAM 7.5 MG CAPSULE PO PRN (22:25)
[2017-08-08] MEDS: ACETAMINOPHEN 325 MG TABLET PO PRN ×2 (01:37→21:28)
[2017-08-08] MEDS: LORAZEPAM 0.5 MG TABLET PO PRN (01:59)
--- NOTE | 2017-08-08 05:46 | NUR ---
PATIENT SLEPT FOR 3 HOURS ONLY, NO FURTHER COMPLAIN OF BACK AND LEG PAIN, PATIENT HAS EPISODE OF HYPERVERBAL, AND VERBALLY ABUSIVE. REDIRECT PATIENT, ASSIST WITH TOILETING, KEPT CLEAN AND DRY, CONT ON 1;1 SITTER FOR SAFETY. KEPT COMFORTABLE.
[2017-08-08] MEDS: BENAZEPRIL HCL 20 MG TABLET PO SCH (07:36)
[2017-08-08] MEDS: LORAZEPAM 0.5 MG TABLET PO SCH ×3 (07:36→17:01)
[2017-08-08] MEDS: GABAPENTIN 300 MG CAPSULE PO SCH ×3 (07:36→17:01)
[2017-08-08] MEDS: FUROSEMIDE 20 MG TABLET PO SCH (07:36)
[2017-08-08] MEDS: AMLODIPINE 10 MG TABLET PO SCH (07:36)
[2017-08-08] MEDS: QUETIAPINE FUMARATE 100 MG TABLET PO SCH ×2 (07:36→17:01)
[2017-08-08] MEDS: LIDOCAINE 5% PATCH TD SCH (07:37)
[2017-08-08] MEDS: NICOTINE 21 MG/24HR PATCH TD SCH (07:37)
[2017-08-08] MEDS: DIVALPROEX 250 MG TABLET.DR PO SCH ×3 (07:37→21:29)
[2017-08-08] MEDS: MUPIROCIN 2% OINT 22 GM TUBE NS SCH ×2 (07:38→21:33)
--- NOTE | 2017-08-08 08:00 | NUR ---
Pt alert and oriented x 3. Bruising noted on right ac secondary to blood draw and pt is on eliquis. Pt is in no acute distress. Pt denies any c/o pain. Oriented pt on how to use call light. Discussed plan of care with pt re: fall precaution, pain management. Call light is within reach. Addendum: 08/08/17 at 7034 by JASWINDER ROJAS RN WRONG PATIENT
[2017-08-08 12:00] VITALS: BP 106/69
[2017-08-08 15:27] VITALS: BP 123/86
--- NOTE | 2017-08-08 18:00 | NUR ---
pt slept about 6 hrs this shift. Pt verbally abusive to staff called staff, genet vazquez, and "you mother fucsenia fuck off fucker". Pt was very anxious wants the sitter not looking at her- why does she have to be here, why is she looking at me like that. Explaine to pt that the sitter was there for her safety but pt is not receptive. Pt however was agreeable on taking her medications. Call light is within reach.
[2017-08-08 20:00] VITALS: BP 100/62
--- NOTE | 2017-08-08 21:00 | NUR ---
Pt awake and alert. Can readily become agitated and verbally abusive. Pt is on 5250 hold. Has 1:1 sitter at all times. Pt agitated and does not want anyone in the room at any time. Explained sitter is there for her safety. All needs met. Nursing comfort measures observed at all times.
[2017-08-08] MEDS: QUETIAPINE FUMARATE 200 MG TABLET PO SCH (21:29)
[2017-08-08] MEDS: TEMAZEPAM 7.5 MG CAPSULE PO PRN (21:30)
--- NOTE | 2017-08-08 22:00 | NUR ---
Slowly ambulates to bathroom PRN with walker, supervised by sitter. Enjoyed HS snacks.
--- NOTE | 2017-08-09 01:00 | NUR ---
Pt taking all meds with no problems. Medicated with Ativan and Tylenol per request. See EMar for administration times. A change in sitter was necessary for pt threatening to go AMA if no change was being done. Pt much calm after such change was done.
[2017-08-09] MEDS: LORAZEPAM 0.5 MG TABLET PO PRN ×2 (01:21→21:00)
--- NOTE | 2017-08-09 06:00 | NUR ---
Able to sleep about 5 hours. Sitter remains at bedside. Close observation continues. Has been calm and cooperative the rest of the night.
--- NOTE | 2017-08-09 08:00 | NUR ---
Pt continues to be verbally abusive to staff. PT stated to sitter "get the fuck off my room." Set limits with pt. Pt continues to take meds. 1:1 for safety. Call light is within reach.
[2017-08-09] MEDS: DIVALPROEX 250 MG TABLET.DR PO SCH ×3 (08:04→20:59)
[2017-08-09] MEDS: QUETIAPINE FUMARATE 100 MG TABLET PO SCH ×2 (08:04→16:44)
[2017-08-09] MEDS: AMLODIPINE 10 MG TABLET PO SCH (08:04)
[2017-08-09] MEDS: GABAPENTIN 300 MG CAPSULE PO SCH ×3 (08:04→16:45)
[2017-08-09] MEDS: FUROSEMIDE 20 MG TABLET PO SCH (08:04)
[2017-08-09] MEDS: LORAZEPAM 0.5 MG TABLET PO SCH ×3 (08:05→16:45)
[2017-08-09] MEDS: NICOTINE 21 MG/24HR PATCH TD SCH (08:05)
[2017-08-09] MEDS: MUPIROCIN 2% OINT 22 GM TUBE NS SCH ×2 (08:05→20:58)
[2017-08-09] MEDS: BENAZEPRIL HCL 20 MG TABLET PO SCH (08:05)
[2017-08-09] MEDS: LIDOCAINE 5% PATCH TD SCH (08:05)
[2017-08-09] MEDS: ACETAMINOPHEN 325 MG TABLET PO PRN (15:26)
--- NOTE | 2017-08-09 18:00 | NUR ---
PT had a nap of 1 hour today. Pt denies any c/o pain. Pt's became more cooperative to 1:1 sitter at end of shift. Pt took all meds today without any hesitation and resistance. Call light is within reach.
[2017-08-09 19:27] VITALS: BP 124/75
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
[2017-08-09] MEDS: QUETIAPINE FUMARATE 200 MG TABLET PO SCH (20:58)
[2017-08-10 04:00] VITALS: BP 118/77
--- NOTE | 2017-08-10 06:44 | NUR ---
PATIENT SLEPT 8 HOURS ON THIS SHIFT. EPISODE OF AGITATION X1 ATIVAN PRN GIVEN ORDERED. SAFETY MEASURES MAINTAINED AT ALL TIMES. SITTER AT BEDSIDE WITH CLOSE MONITORING OF PATIENT
[2017-08-10 07:36] VITALS: BP 133/78
[2017-08-10] MEDS: MUPIROCIN 2% OINT 22 GM TUBE NS SCH ×2 (08:36→20:46)
[2017-08-10] MEDS: NICOTINE 21 MG/24HR PATCH TD SCH (08:36)
[2017-08-10] MEDS: LIDOCAINE 5% PATCH TD SCH (08:36)
[2017-08-10] MEDS: BENAZEPRIL HCL 20 MG TABLET PO SCH (08:37)
[2017-08-10] MEDS: FUROSEMIDE 20 MG TABLET PO SCH (08:37)
[2017-08-10] MEDS: LORAZEPAM 0.5 MG TABLET PO SCH ×3 (08:37→16:53)
[2017-08-10] MEDS: GABAPENTIN 300 MG CAPSULE PO SCH ×3 (08:38→16:53)
[2017-08-10] MEDS: QUETIAPINE FUMARATE 100 MG TABLET PO SCH ×2 (08:38→16:53)
[2017-08-10] MEDS: DIVALPROEX 250 MG TABLET.DR PO SCH ×3 (08:38→20:41)
[2017-08-10] MEDS: AMLODIPINE 10 MG TABLET PO SCH (08:38)
[2017-08-10 12:42] VITALS: BP 116/73
[2017-08-10] MEDS: ACETAMINOPHEN 325 MG TABLET PO PRN ×2 (15:05→22:20)
[2017-08-10 16:00] VITALS: BP 104/70
--- NOTE | 2017-08-10 19:30 | NUR ---
RECEIVED PATIENT IN BED, ASSISTED WITH TOILETING, KEPT CLEAN AND DRY, CONT ON 1;1 SITTER FOR SAFETY, CONT ON CONTACT ISOLATION FOR MRSA NARES, CONT TO MONITOR.
[2017-08-10 20:00] VITALS: BP 93/59
[2017-08-10] MEDS: QUETIAPINE FUMARATE 200 MG TABLET PO SCH (20:41)
[2017-08-10] MEDS: LORAZEPAM 0.5 MG TABLET PO PRN (23:15)
--- NOTE | 2017-08-10 23:29 | NUR ---
PATIENT AWAKE NOTED WITH AGITATION, PATIENT HYPERVERBAL, REDIRECT PATIENT, GIVEN PRN ATIVAN, CONT TO MONITOR.
--- NOTE | 2017-08-11 04:57 | NUR ---
PATIENT SLEPT FOR 3 HOURS, CONT 1;1 SITTER FOR SAFETY, ASSISTED WITH TOILETING, GIVEN TYLENOL FOR BACK PAIN, AND ATIVAN FOR ANXIETY, HYPERVERBAL, CONT TO MONITOR.
[2017-08-11 07:01] LABS: BASOPHILS % (AUTO) 0.7 % (0.0-2.0); EOSINOPHILS # (AUTO) 0.1 K/uL (0.0-0.7); EOSINOPHILS % (AUTO) 2.7 % (0.0-7.0); HEMATOCRIT 34.8 % (31.2-41.9); HEMOGLOBIN 11.7 g/dL (10.9-14.3); LYMPHOCYTES # (AUTO) 1.5 K/uL (20.0-40.0); LYMPHOCYTES % (AUTO) 31.8 % (20.5-51.5); MEAN CORPUSCULAR HEMOGLOBIN 27.7 uug (24.7-32.8); MEAN CORPUSCULAR HGB CONC 34 g/dL (32.3-35.6); MEAN CORPUSCULAR VOLUME 82.4 fL (75.5-95.3); MONOCYTES # (AUTO) 0.6 K/uL (2.0-10.0); MONOCYTES % (AUTO) 12.4 % (0.0-11.0); NEUTROPHILS # (AUTO) 2.5 K/uL (1.8-8.9); NEUTROPHILS % (AUTO) 52.4 % (38.5-71.5); PLATELET COUNT (AUTO) 427 K/uL (179-408); RED BLOOD CELL COUNT(AUTO) 4.22 MIL/uL (3.63-4.92); WHITE BLOOD COUNT (AUTO) 4.8 K/uL (3.8-11.8)
[2017-08-11 07:30] VITALS: BP 137/81
[2017-08-11 08:00] VITALS: BP 137/83
[2017-08-11] MEDS: ACETAMINOPHEN 325 MG TABLET PO PRN ×3 (08:17→22:14)
[2017-08-11] MEDS: QUETIAPINE FUMARATE 100 MG TABLET PO SCH ×2 (08:17→16:30)
[2017-08-11] MEDS: NICOTINE 21 MG/24HR PATCH TD SCH (08:17)
[2017-08-11] MEDS: FUROSEMIDE 20 MG TABLET PO SCH (08:17)
[2017-08-11] MEDS: LIDOCAINE 5% PATCH TD SCH (08:17)
[2017-08-11] MEDS: LORAZEPAM 0.5 MG TABLET PO SCH ×4 (08:18→20:27)
[2017-08-11] MEDS: AMLODIPINE 10 MG TABLET PO SCH (08:19)
[2017-08-11] MEDS: BENAZEPRIL HCL 20 MG TABLET PO SCH (08:19)
[2017-08-11 08:20] LABS: BILIRUBIN,TOTAL 0.2 mg/dL (0.2-1.0); MAGNESIUM 2.1 mg/dL (1.8-2.4); PHOSPHOROUS 4.3 mg/dL (2.5-4.9); POTASSIUM 4.3 mmol/L (3.5-5.1); TOTAL PROTEIN, SERUM 6.9 g/dL (6.4-8.2)
[2017-08-11] MEDS: DIVALPROEX 250 MG TABLET.DR PO SCH ×3 (08:26→20:27)
[2017-08-11] MEDS: GABAPENTIN 300 MG CAPSULE PO SCH ×3 (08:26→16:30)
[2017-08-11 08:28] LABS: THYROID STIMULATING HORMONE 1.181 mIU/mL (0.358-3.740)
[2017-08-11] MEDS: MUPIROCIN 2% OINT 22 GM TUBE NS SCH ×2 (09:16→20:30)
--- NOTE | 2017-08-11 13:40 | NUR ---
Discharge Planning Note: Received call from patient's [id number], Nathanael Woodard ([phone]) who seemed upset about lack of communication from hospital about patient's status and progress. Patient did provide verbal consent to speak with her brother (Jose Woodard [phone]) and [id number]. SW spent 30 min on phone with pt's [id number] discussing pt's status and discharge planning. Per Nathanael, she and pt's brother are unable to provide financial assistance to the patient for 24/7 caregiving, and stated that it would be unsafe for patient to return home at this point without 24/7 caregiving. Pt's [id number]-[id number] requested information about conservatorship. SW provided education and resources for the conservatorship process. SW will continue to follow-up with pt, family, and MD regarding appropriate discharge disposition for the patient.
[2017-08-11 14:54] VITALS: BP 110/83
[2017-08-11] MEDS: HYDROCORTISONE 0.5% CREAM 28.35 GM TUBE TOP SCH (18:02)
--- NOTE | 2017-08-11 19:20 | NUR ---
Pt lying in bed. Awake, but confused and disoriented. No s/sx of pain or discomfort noted. In no acute distress. Safety measure initiated. 1:1 sitter at bedside.
--- NOTE | 2017-08-11 20:05 | NUR ---
found pt walking on the hallway with the walker and 1;1 sitter. Pt trying to elope, stating she wants to go home. Difficult to redirect at first but able to bring pt back in her room. Routine medication given as well as Ativan for anxiety. Continue to monitor.
[2017-08-11] MEDS: LORAZEPAM 0.5 MG TABLET PO PRN (20:27)
[2017-08-11] MEDS: QUETIAPINE FUMARATE 200 MG TABLET PO SCH (20:27)
--- NOTE | 2017-08-11 20:27 | NUR ---
Ativan 0.5mg prn dose given but accidentally choose the routine dose for 0900 on eMar for tomorrow 08/12/17. Addendum: 08/11/17 at 2230 by TAINA DICKSONN RN Corrected on eMAR.
[2017-08-11] MEDS: TEMAZEPAM 7.5 MG CAPSULE PO PRN (22:34)
[2017-08-12] MEDS: ACETAMINOPHEN 325 MG TABLET PO PRN ×2 (03:35→14:02)
[2017-08-12] MEDS: LORAZEPAM 0.5 MG TABLET PO PRN (03:35)
[2017-08-12] MEDS: HYDROCORTISONE 0.5% CREAM 28.35 GM TUBE TOP SCH ×2 (03:39→16:18)
[2017-08-12 05:20] VITALS: BP 101/62
--- NOTE | 2017-08-12 06:32 | NUR ---
PT SLEPT OFF AND ON THROUGH OUT THE SHIFT. MUCH CALMER DURING THE DAY TIME. ATIVAN PRN GIVEN FOR ANXIETY AND EFFECTIVE. 1:[address]. NO FURTHER UNSAFE BEHAVIOR NOTED. VS WNL. NEEDS ATTENDED TO AND MET. SAFETY MEASURE MAINITAINED AND CALL [facility] WITHIN REACH.
[2017-08-12 07:30] VITALS: BP 119/80
[2017-08-12] MEDS: FUROSEMIDE 20 MG TABLET PO SCH (08:14)
[2017-08-12] MEDS: NICOTINE 21 MG/24HR PATCH TD SCH (08:14)
[2017-08-12] MEDS: LIDOCAINE 5% PATCH TD SCH (08:14)
[2017-08-12] MEDS: LORAZEPAM 0.5 MG TABLET PO SCH ×3 (08:14→16:18)
[2017-08-12] MEDS: DIVALPROEX 250 MG TABLET.DR PO SCH ×3 (08:14→21:07)
[2017-08-12] MEDS: QUETIAPINE FUMARATE 100 MG TABLET PO SCH (08:15)
[2017-08-12] MEDS: AMLODIPINE 10 MG TABLET PO SCH (08:15)
[2017-08-12] MEDS: GABAPENTIN 300 MG CAPSULE PO SCH ×3 (08:15→16:18)
[2017-08-12] MEDS: BENAZEPRIL HCL 20 MG TABLET PO SCH (08:16)
[2017-08-12] MEDS: MUPIROCIN 2% OINT 22 GM TUBE NS SCH ×2 (09:09→21:07)
[2017-08-12] MEDS: DOCUSATE SODIUM 100 MG CAPSULE PO SCH ×2 (10:48→21:07)
[2017-08-12 15:00] VITALS: BP 117/80
[2017-08-12] MEDS: QUETIAPINE FUMARATE 25 MG TABLET PO SCH (16:18)
--- NOTE | 2017-08-12 16:24 | NUR ---
General Manager Farm: Met with patient at bedside to discuss discharge planning. Patient requested different psychiatrist take her case. Patient submitted written request. Notified RN Tosha and silver solderer. Notified Social Service Agency Director, Clinton Wells. Per Clinton Wells, Dr. Basilio is willing to accept the case. RN and silver solderer made aware. will continue to collaborate with pt and MD.
[2017-08-12] MEDS: QUETIAPINE FUMARATE 200 MG TABLET PO SCH (21:07)
[2017-08-13] MEDS: TEMAZEPAM 7.5 MG CAPSULE PO PRN ×2 (00:24→21:37)
[2017-08-13] MEDS: ACETAMINOPHEN 325 MG TABLET PO PRN ×2 (00:24→11:22)
[2017-08-13] MEDS: LORAZEPAM 0.5 MG TABLET PO PRN ×2 (02:13→05:42)
[2017-08-13] MEDS: HYDROCORTISONE 0.5% CREAM 28.35 GM TUBE TOP SCH ×2 (03:33→16:47)
--- NOTE | 2017-08-13 06:00 | NUR ---
pt alert, oriented,ambulates with walker, very weak, on 14 day hold psyche pt. till 08/21. medicated x2 of ativan,pt attempted to go home, since 0200 this morning,get agitated walked out the room with her walker but was unable to find her way out as pt was walking so slow and barely moving her legs, pt agreed to go back to room and wait till morning. this morning pt gets up and prepare herself to go home, all clothes were packed inside the bag, agreed to take ativan. in the chair and eyes closed at this time ,with sitter at closed observation.will continue to monitor.
[2017-08-13 07:28] VITALS: BP 116/85
[2017-08-13] MEDS: LIDOCAINE 5% PATCH TD SCH (08:11)
[2017-08-13] MEDS: LORAZEPAM 0.5 MG TABLET PO SCH ×3 (08:11→16:47)
[2017-08-13] MEDS: QUETIAPINE FUMARATE 25 MG TABLET PO SCH ×3 (08:11→16:47)
[2017-08-13] MEDS: NICOTINE 21 MG/24HR PATCH TD SCH (08:11)
[2017-08-13] MEDS: GABAPENTIN 300 MG CAPSULE PO SCH ×3 (08:11→16:47)
[2017-08-13] MEDS: FUROSEMIDE 20 MG TABLET PO SCH (08:11)
[2017-08-13] MEDS: BENAZEPRIL HCL 20 MG TABLET PO SCH (08:11)
[2017-08-13] MEDS: DIVALPROEX 250 MG TABLET.DR PO SCH ×2 (08:12→13:49)
[2017-08-13] MEDS: AMLODIPINE 10 MG TABLET PO SCH (08:12)
[2017-08-13] MEDS: DOCUSATE SODIUM 100 MG CAPSULE PO SCH ×2 (08:12→21:02)
[2017-08-13] MEDS: MUPIROCIN 2% OINT 22 GM TUBE NS SCH ×2 (08:43→21:03)
[2017-08-13] MEDS ORDERED: BISACODYL 10 MG SUPP.RECT RC ONE (10:15)
[2017-08-13] MEDS ORDERED: MAGNESIUM HYDROXIDE 30 ML LIQUID UDC PO ONE (10:15)
[2017-08-13 12:10] VITALS: BP 119/76
--- NOTE | 2017-08-13 14:54 | NUR ---
TRANSFER THE PT TO [facility] VIA WHEEL CHAIR IN STABLE CONDITION REPORT GIVEN TO ONEIL GARCIA
--- NOTE | 2017-08-13 15:00 | NUR ---
Gps/Gm-Received report fron 2nd floor, from sue Luna. Patient came down via wheel chair, alert, oriented x2, in no distress, with patient are clothes (5 pcs dresses/duster) Patient anxious redirectable, unsteady gait, shuffles when she walks, safety reviewed emphasized, provided walker for her safety.Oriented to unit settings. Patient willl be under Dr Basilio , as informed by Elieser MURPHY
[2017-08-13 15:50] VITALS: BP 109/56
--- NOTE | 2017-08-13 16:18 | NUR ---
Gps/Welder Tech- Wheel chair also provided for patient for safety, shuffles during ambulation , safety continue to emphasized.
[2017-08-13 20:30] VITALS: BP 110/68
[2017-08-13] MEDS ORDERED: DIVALPROEX 250 MG TABLET.DR PO SCH (21:00)
[2017-08-13] MEDS: DIVALPROEX 500 MG TABLET.DR PO SCH (21:02)
[2017-08-13] MEDS: QUETIAPINE FUMARATE 200 MG TABLET PO SCH (21:02)
--- NOTE | 2017-08-14 01:04 | NUR ---
GPS/NSG 2481 Patient first observed lying in bed with eyes closed. Once visible on the unit, medication administered, patient then returned to the room first via wheelchair then upon 2nd glance patient observed walking the wheelchair, staff redirected towards patient to assist patient to the room when patient noticed on the floor, staff did not witness fall however immediately assisted back to bed patient able to get up no head injury apparent or reported. Physician and Psychiatrist contacted. Orders were to monitor closely and 1:1 observation for safety.
[2017-08-14] MEDS: HYDROCORTISONE 0.5% CREAM 28.35 GM TUBE TOP SCH ×2 (04:30→17:27)
[2017-08-14 07:30] VITALS: BP 142/83
--- NOTE | 2017-08-14 07:30 | NUR ---
Shift report given by nightshift RN. Pt with 1:1 sitter for safety secondary to pt with behavior of attempting to ambulate without assistance. Continues to be on 14 day hold for her labile, agitated, and impulsive behavior causing her to be GD. Pt in fair condition. Rec'd in bed awake, up in chair near nurse's station. Pt with behavior of name calling staff for attention and for no apparent reason. Pt not redirectable. Pt becomes agitated with each attempt to redirect her. On RA, no SOB noted. No s/s of acute distress noted. Will continue to monitor.
[2017-08-14] MEDS: GABAPENTIN 300 MG CAPSULE PO SCH ×3 (08:22→17:27)
[2017-08-14] MEDS: FUROSEMIDE 20 MG TABLET PO SCH (08:22)
[2017-08-14] MEDS: LORAZEPAM 0.5 MG TABLET PO SCH ×3 (08:22→17:27)
[2017-08-14] MEDS: BENAZEPRIL HCL 20 MG TABLET PO SCH (08:24)
[2017-08-14] MEDS: QUETIAPINE FUMARATE 25 MG TABLET PO SCH ×2 (08:24→13:11)
[2017-08-14] MEDS: NICOTINE 21 MG/24HR PATCH TD SCH (08:24)
[2017-08-14] MEDS: DOCUSATE SODIUM 100 MG CAPSULE PO SCH ×2 (08:24→20:23)
[2017-08-14] MEDS: DIVALPROEX 250 MG TABLET.DR PO SCH ×2 (08:24→13:11)
[2017-08-14] MEDS: AMLODIPINE 10 MG TABLET PO SCH (08:24)
[2017-08-14] MEDS: MUPIROCIN 2% OINT 22 GM TUBE NS SCH (08:31)
[2017-08-14] MEDS: LIDOCAINE 5% PATCH TD SCH (08:32)
[2017-08-14 15:04] VITALS: BP 99/61
[2017-08-14] MEDS: ACETAMINOPHEN 325 MG TABLET PO PRN (15:06)
[2017-08-14] MEDS ORDERED: FLEET ENEMA 133 ML BOTTLE RC ONE (15:45)
[2017-08-14] MEDS ORDERED: OLANZAPINE 10 MG VIAL IM ONE (16:15)
--- NOTE | 2017-08-14 16:20 | NUR ---
Noted pt attempting to stand up and ambulate without assistance. Pt at risk for falls due to her unsteady shuffling gait. Attempted to redirect pt and assist back to chair, however pt became extremely agitated. Pt tried to strike out at staff and began to curse and yell at staff. Pt not redirectable. Pt would get more agitated with each attempt to calm her down. Pt putting staff and herself at risk. All non-drug interventions ineffective at this time. Relayed to Dr. Basilio and obtained telephone order for Zyprexa 10mg via IM x1 dose now. Noted and carried out.
[2017-08-14] MEDS: QUETIAPINE FUMARATE 100 MG TABLET PO SCH (17:27)
[2017-08-14 20:09] VITALS: BP 98/64
[2017-08-14] MEDS: HYDROCODONE/APAP 5-325MG TABLET PO PRN (20:23)
[2017-08-14] MEDS: QUETIAPINE FUMARATE 200 MG TABLET PO SCH (20:23)
[2017-08-14] MEDS: DIVALPROEX 500 MG TABLET.DR PO SCH (20:23)
--- NOTE | 2017-08-14 21:53 | NUR ---
GPS/NSG Patient continues on a 1:1 for safety. Patient verbalized arm and chest pain, stated. "I am having a heart attack". Physician notified, orders obtained and carried out vitals signs stable. Will continue to monitor for patient well being.
[2017-08-14] MEDS: TEMAZEPAM 7.5 MG CAPSULE PO PRN (22:09)
[2017-08-14] MEDS ORDERED: NITROGLYCERIN 0.4 MG/TAB BOTTLE SL PRN (22:30)
[2017-08-14] MEDS ORDERED: ASPIRIN EC 325 MG TABLET.DR PO ONE (22:30)
[2017-08-14] MEDS ORDERED: ASPIRIN EC 81 MG TABLET.DR PO ONE (23:07)
[2017-08-15] MEDS: ACETAMINOPHEN 325 MG TABLET PO PRN ×3 (03:41→21:05)
[2017-08-15] MEDS: HYDROXYZINE PAMOATE 25 MG CAPSULE PO PRN (03:41)
[2017-08-15] MEDS: HYDROCORTISONE 0.5% CREAM 28.35 GM TUBE TOP SCH ×2 (04:30→17:17)
--- NOTE | 2017-08-15 06:57 | NUR ---
Nsg/Gps Patient requested a prn for insomnia, administered as ordered, patient slept a total of four intermittent hours patient requested for anxiety administered as ordered with prn for break through pain. Continue to monitor for safety.
[2017-08-15 07:30] VITALS: BP 125/59
[2017-08-15 07:50] LABS: BASOPHILS % (AUTO) 0.4 % (0.0-2.0); EOSINOPHILS # (AUTO) 0.1 K/uL (0.0-0.7); EOSINOPHILS % (AUTO) 2.3 % (0.0-7.0); HEMATOCRIT 35.9 % (31.2-41.9); HEMOGLOBIN 11.8 g/dL (10.9-14.3); LYMPHOCYTES # (AUTO) 1.9 K/uL (20.0-40.0); LYMPHOCYTES % (AUTO) 35.4 % (20.5-51.5); MEAN CORPUSCULAR HEMOGLOBIN 27.4 uug (24.7-32.8); MEAN CORPUSCULAR HGB CONC 33 g/dL (32.3-35.6); MONOCYTES # (AUTO) 0.6 K/uL (2.0-10.0); MONOCYTES % (AUTO) 11.9 % (0.0-11.0); NEUTROPHILS # (AUTO) 2.7 K/uL (1.8-8.9); PLATELET COUNT (AUTO) 343 K/uL (179-408); RED BLOOD CELL COUNT(AUTO) 4.32 MIL/uL (3.63-4.92); WHITE BLOOD COUNT (AUTO) 5.4 K/uL (3.8-11.8)
[2017-08-15 08:02] LABS: BILIRUBIN,TOTAL 0.3 mg/dL (0.2-1.0); CREATININE 1.1 mg/dL (0.6-1.3); MAGNESIUM 2.5 mg/dL (1.8-2.4); PHOSPHOROUS 4.8 mg/dL (2.5-4.9); POTASSIUM 4.2 mmol/L (3.5-5.1)
[2017-08-15] MEDS: DOCUSATE SODIUM 100 MG CAPSULE PO SCH ×2 (08:29→21:03)
[2017-08-15] MEDS: LORAZEPAM 0.5 MG TABLET PO SCH ×3 (08:29→17:15)
[2017-08-15] MEDS: ASPIRIN EC 81 MG TABLET.DR PO SCH (08:30)
[2017-08-15] MEDS: DIVALPROEX 250 MG TABLET.DR PO SCH ×2 (08:30→13:27)
[2017-08-15] MEDS: FUROSEMIDE 20 MG TABLET PO SCH (08:30)
[2017-08-15] MEDS: GABAPENTIN 300 MG CAPSULE PO SCH ×4 (08:31→21:03)
[2017-08-15] MEDS: QUETIAPINE FUMARATE 100 MG TABLET PO SCH ×3 (08:31→17:14)
[2017-08-15] MEDS: BENAZEPRIL HCL 20 MG TABLET PO SCH (08:31)
[2017-08-15] MEDS: AMLODIPINE 10 MG TABLET PO SCH (08:31)
[2017-08-15] MEDS: NICOTINE 21 MG/24HR PATCH TD SCH (08:32)
[2017-08-15] MEDS: LIDOCAINE 5% PATCH TD SCH (08:32)
[2017-08-15] MEDS ORDERED: ASPIRIN EC 325 MG TABLET.DR PO SCH (09:00)
--- NOTE | 2017-08-15 09:10 | NUR ---
PATIENT IS LAYING IN BED. WANTS TO PICK OUT AND CHOOSE MEDICATIONS SHE WANTS TO TAKE. INFORMED PATIENT THAT ALL THE MEDICATIONS ARE PRESCRIBED FROM HER DOCTORS AND ARE SPECIFIED FOR HER TO TAKE. PATIENT REFUSING, HESITANT, RESISTANT AND WITH REPEATED ENCOURAGEMENT PATIENT TAKES MEDICATION. PATIENT WAS ALSO ASKED TO OPEN MOUTH AFTER TAKING. PATIENT WAS FOUND CHEEKING MEDICATION. GAVE HER MORE FLUID TO FINISH TAKING MEDICATION.
--- NOTE | 2017-08-15 14:04 | NUR ---
PATIENT COOPERATING AND INTERACTING IN THE ACTIVITY ROOM WITH OTHERS.
--- NOTE | 2017-08-15 14:14 | NUR ---
PATIENT IS PLAYING CARDS WITH OTHER PATIENT IN ACTIVITY ROOM
[2017-08-15 15:15] VITALS: BP 100/54
[2017-08-15 20:19] VITALS: BP 112/65
[2017-08-15] MEDS: DIVALPROEX 500 MG TABLET.DR PO SCH (21:03)
[2017-08-15] MEDS: QUETIAPINE FUMARATE 200 MG TABLET PO SCH (21:03)
[2017-08-16] MEDS: ACETAMINOPHEN 325 MG TABLET PO PRN ×2 (04:07→11:31)
[2017-08-16] MEDS: HYDROCORTISONE 0.5% CREAM 28.35 GM TUBE TOP SCH ×2 (05:27→17:29)
[2017-08-16 07:30] VITALS: BP 127/94
[2017-08-16] MEDS: LIDOCAINE 5% PATCH TD SCH (08:28)
[2017-08-16] MEDS: ASPIRIN EC 81 MG TABLET.DR PO SCH (08:28)
[2017-08-16] MEDS: NICOTINE 21 MG/24HR PATCH TD SCH (08:28)
[2017-08-16] MEDS: DIVALPROEX 250 MG TABLET.DR PO SCH ×2 (08:28→12:40)
[2017-08-16] MEDS: QUETIAPINE FUMARATE 100 MG TABLET PO SCH ×3 (08:28→17:29)
[2017-08-16] MEDS: DOCUSATE SODIUM 100 MG CAPSULE PO SCH ×2 (08:29→20:31)
[2017-08-16] MEDS: AMLODIPINE 10 MG TABLET PO SCH (08:29)
[2017-08-16] MEDS: FUROSEMIDE 20 MG TABLET PO SCH (08:29)
[2017-08-16] MEDS: GABAPENTIN 300 MG CAPSULE PO SCH ×4 (08:29→20:31)
[2017-08-16] MEDS: LORAZEPAM 0.5 MG TABLET PO SCH ×3 (08:29→17:29)
[2017-08-16] MEDS: BENAZEPRIL HCL 20 MG TABLET PO SCH (08:30)
[2017-08-16] MEDS: HYDROXYZINE PAMOATE 25 MG CAPSULE PO PRN (10:30)
--- NOTE | 2017-08-16 13:27 | NUR ---
Discharge Planning Note: SW spoke with patient's [facility] caregiver, Luh Manzano ([phone]). Per caregiver, she has been providing SS services to the patient for the past 7 years and works with her about 4 hours per day. Per caregiver, she does not think that amount of time is adequate and that the patient would need to be reassessed for more hours by her [facility] Labor Relations Officer when she is discharged. Per caregiver, the patient has not been receiving IHSS services for the past month because she has been in and out of the hospital and SNFs. "Because of this, I [caregiver] am not hired by [facility] for her anymore," per caregiver. [facility] Labor Relations Officer needed to be contacted in order to ensure IH services when pt is discharged from [facility]. Caregiver provided name and number of pt's [facility] SW, Didier Oshea ([phone]). This proposal lead writer attempted to call this number, and remained on hold for 45 min and was not put in contact with anyone. This proposal lead writer attempted to call the [facility] Office in [place], [place] ([phone]) and left a message for an employee to call back. Relayed above information to the patient. Per pt, she would like to try to get in touch with her [facility] SW herself. Provided pt with information for her social work assistant. MAMADOU will follow-up with pt at later time today. Spoke with Dr. Basilio about situation. Core Setter, Clinton martinez as well. Labor Relations Officer will continue to follow-up to ensure safe and proper discharge for the patient. Addendum: 08/16/17 at 1610 by COCO CEDILLO SW met with pt at bedside. Pt spoke with an [facility] route service representative who took down this proposal lead writer's number ([phone]) and stated pt's [facility] Labor Relations Officer would call within 24 hours. Pt expressed, "I want to go home today." This proposal lead writer spent 15 min speaking with the pt and explaining the importance of knowing she has support at home before she is discharged. SW set boundaries and allowed pt to express her desire to go home. Patient was displeased with this conversation and became verbally abusive toward this proposal lead writer. Consulted with Director, Clinton Wells who is aware. SW will continue to follow-up.
[2017-08-16 15:44] VITALS: BP 116/73
[2017-08-16 20:00] VITALS: BP 119/67
[2017-08-16] MEDS: QUETIAPINE FUMARATE 200 MG TABLET PO SCH (20:31)
[2017-08-16] MEDS: DIVALPROEX 500 MG TABLET.DR PO SCH (20:31)
[2017-08-16] MEDS: TEMAZEPAM 7.5 MG CAPSULE PO PRN (21:33)
--- NOTE | 2017-08-16 21:45 | NUR ---
RECEIVED Pt IN DAY ROOM, A/O X 2, COOPERATIVE WITH ASSESSMENT BUT EASILY AGITATED AND NEEDY. Pt IS AT TIMES VERBALLY ABUSIVE TO CARE STAFF, RE-ORIENTED TO UNIT RULES, Pt VERBALLY STATED UNDERSTANDING AND WENT TO BED. 1:1 SITTER FOR SAFETY AT ALL TIMES. Pt REQUESTED SLEEPING PILL AT 2130. GIVEN RESTORIL 7.5 MG PO PRN FOR SLEEP PER MD ORDER, WILL MONITOR MED EFFECTIVENESS.
[2017-08-17 07:30] VITALS: BP 134/70
[2017-08-17] MEDS: NICOTINE 21 MG/24HR PATCH TD SCH (09:09)
[2017-08-17] MEDS: GABAPENTIN 300 MG CAPSULE PO SCH ×4 (09:09→20:33)
[2017-08-17] MEDS: FUROSEMIDE 20 MG TABLET PO SCH (09:09)
[2017-08-17] MEDS: DOCUSATE SODIUM 100 MG CAPSULE PO SCH ×2 (09:10→20:33)
[2017-08-17] MEDS: DIVALPROEX 250 MG TABLET.DR PO SCH ×2 (09:10→13:03)
[2017-08-17] MEDS: BENAZEPRIL HCL 20 MG TABLET PO SCH (09:10)
[2017-08-17] MEDS: AMLODIPINE 10 MG TABLET PO SCH (09:10)
[2017-08-17] MEDS: QUETIAPINE FUMARATE 100 MG TABLET PO SCH ×3 (09:10→16:36)
[2017-08-17] MEDS: ASPIRIN EC 81 MG TABLET.DR PO SCH (09:10)
[2017-08-17] MEDS: LIDOCAINE 5% PATCH TD SCH (09:11)
[2017-08-17] MEDS: HYDROCORTISONE 0.5% CREAM 28.35 GM TUBE TOP SCH ×2 (09:13→20:34)
[2017-08-17] MEDS: LORAZEPAM 0.5 MG TABLET PO SCH ×2 (09:26→16:38)
[2017-08-17] MEDS: ACETAMINOPHEN 325 MG TABLET PO PRN (13:21)
--- NOTE | 2017-08-17 15:14 | NUR ---
Discharge Planning Note: As of 1514, SW still awaiting call from pt's [facility] Glassware Defect Repairer. Per note on 08/16/17, [facility] was to call within [address] Basilio aware. Director of , Clinton martinez as well. SW will continue to collaborate with pt and MD regarding appropriate discharge disposition for patient.
[2017-08-17 16:30] VITALS: BP 108/72
[2017-08-17] MEDS: HYDROCODONE/APAP 5-325MG TABLET PO PRN (16:37)
--- NOTE | 2017-08-17 20:00 | NUR ---
RECEIVED PATIENT IN THE DAY ROOM. SHE CONTINUE ON 1:1 SUPERVISION FOR SAFETY AND FALL PRECAUTION. SHE IS NOTED A/O X 2. SHE IS NOTED LESS AGITATIVE LESS ANXIOUS. SHE CONTINUE FIXED ON HER DISCHARGED, POOR INSIGHT AND JUDGMENT NOTED TO THE REASON FOR HER ADMISSION. SHE IS UNABLE TO PROVIDE SAFE AND PROPER DISCHARGED AT THIS TIME. SHE STATED, "THAT IS OK, I CAN BE HOME ALONE, I JUST NEEDS A LITTLE HELP". PATIENT IS COMPLIANT WITH MEDICATION REGIMENT AT THIS TIME. SAFETY WAS EMPHASIS. WILL CONTINUE TO MONITOR.
[2017-08-17 20:05] VITALS: BP 125/95
[2017-08-17] MEDS: QUETIAPINE FUMARATE 200 MG TABLET PO SCH (20:33)
[2017-08-17] MEDS: DIVALPROEX 500 MG TABLET.DR PO SCH (20:33)
[2017-08-17] MEDS: TEMAZEPAM 7.5 MG CAPSULE PO PRN (23:20)
--- NOTE | 2017-08-17 23:25 | NUR ---
PATIENT NOTED IN BED AWAKE, UNABLE TO FALL ASLEEP. TEMAZEPAM 7.5MG PO PRN WAS GIVEN FOR INSOMNIA PER PATIENT REQUEST AND NURSE ASSESSMENT. WILL CONTINUE TO MONITOR CLOSELY.
[2017-08-18] MEDS: ACETAMINOPHEN 325 MG TABLET PO PRN ×2 (03:53→17:44)
[2017-08-18 07:30] VITALS: BP 154/89
[2017-08-18] MEDS: NICOTINE 21 MG/24HR PATCH TD SCH (09:08)
[2017-08-18] MEDS: LIDOCAINE 5% PATCH TD SCH (09:08)
[2017-08-18] MEDS: GABAPENTIN 300 MG CAPSULE PO SCH ×4 (09:09→21:04)
[2017-08-18] MEDS: DIVALPROEX 250 MG TABLET.DR PO SCH ×2 (09:09→12:39)
[2017-08-18] MEDS: QUETIAPINE FUMARATE 100 MG TABLET PO SCH ×3 (09:09→16:28)
[2017-08-18] MEDS: BENAZEPRIL HCL 20 MG TABLET PO SCH (09:10)
[2017-08-18] MEDS: DOCUSATE SODIUM 100 MG CAPSULE PO SCH ×2 (09:10→21:04)
[2017-08-18] MEDS: AMLODIPINE 10 MG TABLET PO SCH (09:10)
[2017-08-18] MEDS: ASPIRIN EC 81 MG TABLET.DR PO SCH (09:10)
[2017-08-18] MEDS: FUROSEMIDE 20 MG TABLET PO SCH (09:11)
[2017-08-18] MEDS: LORAZEPAM 0.5 MG TABLET PO SCH ×3 (09:11→17:45)
[2017-08-18] MEDS: HYDROCORTISONE 0.5% CREAM 28.35 GM TUBE TOP SCH ×2 (09:13→21:05)
[2017-08-18 15:38] VITALS: BP 91/59
[2017-08-18 17:37] VITALS: BP 128/73
--- NOTE | 2017-08-18 18:32 | NUR ---
PT IS LAYING IN BED COMFORTABLY. PT IS CALM AND COOPERATIVE. NO S/S OF RESPIRATORY DISTRESS NOTED. NO PAIN NOTED. ALL NEEDS ARE MET. ALL SAFETY NEEDS ARE MET. 1:1 FOR SAFETY.
[2017-08-18 20:52] VITALS: BP 98/64
[2017-08-18] MEDS: DIVALPROEX 500 MG TABLET.DR PO SCH (21:05)
[2017-08-18] MEDS: QUETIAPINE FUMARATE 200 MG TABLET PO SCH (22:30)
[2017-08-18 22:33] VITALS: BP 112/71
--- NOTE | 2017-08-19 00:10 | NUR ---
RECEIVED PATIENT IN HER BED. SHE CONTINUE ON 1:1 SUPERVISION FOR SAFETY AND FALL PRECAUTION. SHE IS NOTED ASLEEP BUT EASILY AROUSABLE. A/O X 2. SHE IS ABLE TO AMBULATE WITH ONE PERSON ASSISTANCE AND ABLE TO MAKE HER NEEDS KNOW. SHE IS NOTED CALM AND PLEASANT. PATIENT IS COMPLIANT WITH MEDICATION REGIMENT AT THIS TIME. SAFETY WAS EMPHASIS. WILL CONTINUE TO MONITOR.
[2017-08-19] MEDS: HYDROCODONE/APAP 5-325MG TABLET PO PRN (02:15)
--- NOTE | 2017-08-19 06:29 | NUR ---
PATIENT SLEPT FOR APPROX 8.45HRS THROUGH THE NIGHT. SHE CONTINUE ON 1:1 SUPERVISION FOR SAFETY. NOTED NEEDY AND DEMANDING A TIMES. SHE IS LOOKING FORWARD HER INCOMING D/C TODAY.
[2017-08-19 07:58] VITALS: BP 167/95
--- NOTE | 2017-08-19 08:00 | NUR ---
RECEIVED PATIENT IN THE [address] ON W/C. SHE CONTINUE ON 1:1 SUPERVISION FOR SAFETY AND FALL PRECAUTION. SHE IS NOTED A/O X 2. NO AGITATIVE LESS ANXIOUS NOTED. SHE CONTINUE FIXED ON HER DISCHARGED, POOR INSIGHT AND JUDGMENT NOTED TO THE REASON FOR HER ADMISSION. SHE IS UNABLE TO PROVIDE SAFE AND PROPER DISCHARGED AT THIS TIME. PATIENT IS COMPLIANT WITH MEDICATION REGIMENT. SAFETY WAS EMPHASIS. WILL CONTINUE TO MONITOR.
--- NOTE | 2017-08-19 08:03 | NUR ---
Discharge Note: Patient will be discharged to [facility] [[address] [place] [address]; ] via ambulance before noon. Spoke with Rolly at the facility who states they are ready to accept the patient today. Spoke with patient's hozvsf-lz-oue, Nathanael Woodard ([phone]) and pt's brother Jose ([phone]) who are aware and agreeable with patient's discharge plans. Left a message for patient's caregiver, Luh ([phone]) to alert about patient's discharge. Patient is aware and agreeable with discharge plans. Patient will follow-up at the facility with Dr. Pinedo (Nurse Infection Control) and Dr. Aguirre (Psychiatrist).
[2017-08-19] MEDS: NICOTINE 21 MG/24HR PATCH TD SCH (08:25)
[2017-08-19] MEDS: ASPIRIN EC 81 MG TABLET.DR PO SCH (08:26)
[2017-08-19] MEDS: GABAPENTIN 300 MG CAPSULE PO SCH (08:26)
[2017-08-19] MEDS: LIDOCAINE 5% PATCH TD SCH (08:26)
[2017-08-19] MEDS: DIVALPROEX 250 MG TABLET.DR PO SCH (08:28)
[2017-08-19] MEDS: DOCUSATE SODIUM 100 MG CAPSULE PO SCH (08:28)
[2017-08-19] MEDS: BENAZEPRIL HCL 20 MG TABLET PO SCH (08:28)
[2017-08-19 08:29] VITALS: BP 167/95
[2017-08-19] MEDS: QUETIAPINE FUMARATE 100 MG TABLET PO SCH (08:29)
[2017-08-19] MEDS: AMLODIPINE 10 MG TABLET PO SCH (08:29)
[2017-08-19] MEDS: LORAZEPAM 0.5 MG TABLET PO SCH (08:29)
[2017-08-19] MEDS: FUROSEMIDE 20 MG TABLET PO SCH (08:29)
[2017-08-19] MEDS: HYDROCORTISONE 0.5% CREAM 28.35 GM TUBE TOP SCH (08:30)
--- NOTE | 2017-08-19 11:41 | NUR ---
PATIENT DISCHARGED TO [facility] PATEL SPOKE WITH NURSE ALEM AND ENDORSED PATIENT CONDITION. PICKED UP BY 2 EMT PERSONNEL VIA [place], ON ROOM AIR WITH NO C/O OF PAIN, NO C/O OF DISCOMFORT, SKIN DRY, WARM, INTACT. PATIENT IN STABLE CONDITION.
== END 2017-08-19 11:50 | DRG 885 ==
LOC: ER 21:38 → GPS 22:33 → MED 08-07 14:59 → GPSOV 08-07 15:10 → GPS 08-13 15:23
PROVIDERS: ADMIT Psychiatry & Neurology Psychiatry; ATTEND Internal Medicine
DX: F25.0 Schizoaffective disorder, bipolar type (principal); F03.90 Unspecified dementia, unspecified severity, without behavioral disturbance, psychotic disturbance, mood disturbance, and anxiety; E83.41 Hypermagnesemia; J44.9 Chronic obstructive pulmonary disease, unspecified; E87.1 Hypo-osmolality and hyponatremia; Z22.322 Carrier or suspected carrier of Methicillin resistant Staphylococcus aureus; D63.8 Anemia in other chronic diseases classified elsewhere; E66.9 Obesity, unspecified; Z68.32 Body mass index [BMI] 32.0-32.9, adult; Z71.3 Dietary counseling and surveillance; E88.09 Other disorders of plasma-protein metabolism, not elsewhere classified; I10 Essential (primary) hypertension; Z79.899 Other long term (current) drug therapy; Z87.891 Personal history of nicotine dependence; G89.29 Other chronic pain; M54.9 Dorsalgia, unspecified; K59.00 Constipation, unspecified; M19.90 Unspecified osteoarthritis, unspecified site; F41.9 Anxiety disorder, unspecified
CPT/HCPCS: 36415; 70030-TC; 71045; 80164; 80307; 83735; 84100; 84443; 85025; 93005; 97112; 97116; A4663; G0480; G0480-TC; J2358; J3490